=== PATIENT | male | born 1970 | race Caucasian/White ===

== ENCOUNTER → 2019-08-25 18:37 | Outpatient (CLI) | payer OTHER, SELFPAY ==
--- NOTE | 2019-08-25 | DI.MRI.S_ITS ---
PROCEDURE: MR LUMBAR SPINE WO CON INDICATIONS: Low Back Pain TECHNIQUE: Noncontrast sagittal T1 spin echo and T2 fast echo, sagittal STIR, axial T1 and T2 fast spin echo through the lumbar spine. In cases with scoliosis, additional coronal T2 fast spin echo may be performed. COMPARISON: None. FINDINGS: Image quality: Excellent. Alignment and Curvature: There is mild to moderate levoscoliosis centered at L2 level. No spondylolisthesis is seen. Bone Marrow: Marrow is of normal overall signal. No acute vertebral body compression fractures. Spinal Cord: Conus medullaris terminates at the L1 level. Visualized cord demonstrates normal signal and size. Paraspinous Soft Tissues: No paravertebral masses. L1-L2: Decrease in intervertebral disc space and desiccation signals are seen. There is mild broad-based disc bulge and bilateral facet arthrosis with hypertrophy of ligamentum flavum. Mild central canal stenosis and left-sided neuroforaminal narrowing is seen. L2-L3: The decrease intervertebral disc space and desiccation signals are seen. Broad-based disc bulge and bilateral facet arthrosis is seen with hypertrophy of ligamentum flavum. There is mild to moderate central canal stenosis and mild left-sided neuroforaminal narrowing. L3-L4: Broad-based disc bulge and bilateral facet arthrosis is seen with mild to moderate central canal stenosis and mild bilateral neuroforaminal narrowing. L4-L5: Decrease intervertebral disc space and desiccation signals are noted. Broad-based disc bulge and bilateral facet arthrosis with hypertrophy of ligamentum flavum is seen causing moderate central canal stenosis and left worse than right bilateral neuroforaminal narrowing. L5-S1: Decrease intervertebral disc space and degenerative endplate changes are seen. Diffuse, more left-sided disc bulge is seen with bilateral facet arthrosis causing mild central canal stenosis and moderate to severe left-sided neuroforaminal narrowing and compression of exiting left L5 nerve root. No significant right-sided neuroforaminal narrowing. IMPRESSION: 1. Moderate levoscoliosis centered at L2 level. No acute compression fracture or spondylolisthesis. 2. Degenerative disc bulge and bilateral facet arthrosis throughout lumbar spine causing [id number] central canal stenosis and left worse than right bilateral neuroforaminal narrowing more prominent at L5-S1 level as above. Dictated by: Guy Neely M.D. on 08/26/2019 at 11:23 Approved by: Guy Neely M.D. on 08/26/2019 at 11:36
== END ==
PROVIDERS: Visit Provider Physical Medicine & Rehabilitation Pain Medicine
DX: M54.5 Low back pain (principal); M51.36 Other intervertebral disc degeneration, lumbar region; M51.37 Other intervertebral disc degeneration, lumbosacral region; M47.816 Spondylosis without myelopathy or radiculopathy, lumbar region; M47.817 Spondylosis without myelopathy or radiculopathy, lumbosacral region; M41.86 Other forms of scoliosis, lumbar region; M48.061 Spinal stenosis, lumbar region without neurogenic claudication; M48.07 Spinal stenosis, lumbosacral region
CPT/HCPCS: 72148

== ENCOUNTER → 2019-12-13 09:29 | Outpatient (CLI) | payer OTHER, SELFPAY ==
--- NOTE | 2019-12-13 | DI.MRI.S_ITS ---
PROCEDURE: MR CERVICAL SPINE WO CON INDICATIONS: Cervicalgia TECHNIQUE: Noncontrast sagittal T1 spin echo and T2 fast spin echo, sagittal STIR, foraminal oblique sagittal T2 fast spin echo, and axial gradient echo or T2 fast spin echo through the cervical spine. COMPARISON: [facility], CR, XR CERVICAL SPINE 6+ VIEWS, 12/08/2019, 8:44. FINDINGS: Image quality: Excellent. Alignment and Curvature: Straightening of the normal lordotic curvature. Bone Marrow: Marrow demonstrates normal overall signal. Multilevel degenerative endplate sclerosis and spurring. Diffuse facet arthropathy. Spinal Cord: Visualized spinal cord has normal size and signal. No cerebellar tonsillar herniation. Paraspinous Soft Tissues: No paravertebral masses. Prevertebral soft tissues are normal in thickness. C2-C3: No central canal or right foraminal stenosis. Mild left foraminal narrowing with borderline nerve root compression. C3-C4: Normal appearance. C4-C5: No central canal stenosis. Mild right foraminal narrowing with borderline nerve root compression. No left foraminal stenosis. C5-C6: Minimal central canal narrowing. Severe right foraminal stenosis with nerve root compression. Moderate left foraminal narrowing with slight nerve root compression. C6-C7: Mild central canal narrowing, mildly asymmetric, left greater than right. Severe bilateral foraminal stenosis with nerve root compression. C7-T1: No definite central canal narrowing. No foraminal stenosis bilaterally IMPRESSION: Mid-lower cervical spondylosis and facet arthropathy as above No high-grade central canal narrowing Diffuse bilateral foraminal stenoses as detailed above by spinal level, most pronounced at C5-C6 and C6-C7 Straightening of the normal lordotic curvature. Dictated by: Ace Jay M.D. on 12/15/2019 at 9:39 Approved by: Ace Jay M.D. on 12/15/2019 at 9:53
== END ==
PROVIDERS: Referring Provider Physical Medicine & Rehabilitation Pain Medicine; Visit Provider Physical Medicine & Rehabilitation Pain Medicine
DX: M54.2 Cervicalgia (principal); M47.812 Spondylosis without myelopathy or radiculopathy, cervical region; M48.02 Spinal stenosis, cervical region
CPT/HCPCS: 72141

== ENCOUNTER → 2023-04-21 08:29 | Outpatient (CLI) | payer OTHER, SELFPAY ==
--- NOTE | 2023-04-21 08:34 | DI.MRI.S_ITS ---
PROCEDURE: MR CERVICAL SPINE WO CON INDICATIONS: Cervicalgia TECHNIQUE: Noncontrast sagittal T1 spin echo and T2 fast spin echo, sagittal STIR, foraminal oblique sagittal T2 fast spin echo, and axial gradient echo or T2 fast spin echo through the cervical spine. COMPARISON: [facility], MR, MR CERVICAL SPINE WO CON, 12/13/2019, 9:52. FINDINGS: Image quality: Excellent. Alignment and Curvature: There is straightening of the normal cervical lordosis present Bone Marrow: Marrow demonstrates normal overall signal. Spinal Cord: Visualized spinal cord has normal size and signal. No cerebellar tonsillar herniation. Paraspinous Soft Tissues: No paravertebral masses. Prevertebral soft tissues are normal in thickness. C2-C3: Normal appearance. C3-C4: Normal appearance. C4-C5: Disc height is preserved. Hypertrophic right facet joint. No central or foraminal stenosis. C5-C6: Disc height is preserved. Hypertrophic uncovertebral joints present. No central stenosis. Moderate bilateral foraminal stenosis. C6-C7: Disc space narrowing and posterior disc osteophyte complex results in moderate central stenosis. Moderate bilateral foraminal stenosis C7-T1: Disc height is preserved. No central or foraminal stenosis IMPRESSION: Multilevel degenerative disc disease and arthropathy results in varying degrees of central and foraminal stenosis including moderate central and bilateral foraminal stenosis C6-7 Approved by: Mohit Taylor M.D. on 04/23/2023 at 17:35
== END ==
PROVIDERS: Referring Provider Physical Medicine & Rehabilitation Pain Medicine; Visit Provider Physical Medicine & Rehabilitation Pain Medicine
DX: M50.323 Other cervical disc degeneration at C6-C7 level (principal); M48.02 Spinal stenosis, cervical region; M47.812 Spondylosis without myelopathy or radiculopathy, cervical region
CPT/HCPCS: 72141